=== PATIENT | female | born 1955 | race Caucasian/White ===

== ENCOUNTER → 2016-12-05 | Outpatient (CLI) | payer BC ==
--- NOTE | 2016-12-05 08:50 | REPMRS ---
Patient History The patient states she had a clinical breast exam in Patient is postmenopausal. Family history of breast cancer in sister at age 53. Digital Woman Screen Mammo: December 05, 2016 - Exam #: [id number] Bilateral CC and MLO view(s) were taken. Technologist: Lisa Serrano, Technologist Prior study comparison: August 24, 2015, digital woman screen mammo performed at [facility]. May 12, 2014, digital woman screen mammo performed at [facility]. May 09, 2013, digital woman screen mammo performed at [facility]. FINDINGS: The breast tissue is almost entirely fat. There has been no change in the appearance of the mammogram from the prior studies. There is no interval development of dominant mass, architectural distortion, or clustered microcalcification typical of malignancy. ASSESSMENT: BI-RADS/ACR category 1 mammogram. Negative. Recommendation Routine screening mammogram of both breasts in 1 year (for women over age 40). This mammogram was interpreted with the aid of an FDA-approved computer-aided dectection system. Electronically Signed By: Jonny Hagan MD 12/05/16 7890
== END ==
LOC: M WHC 08:02
PROVIDERS: ATTEND Family Medicine
DX: Z12.31 Encounter for screening mammogram for malignant neoplasm of breast (principal)

== ENCOUNTER → 2018-03-19 | Outpatient (CLI) | payer BC | LOC: M WHC 11:25 | DX: Z12.31 Encounter for screening mammogram for malignant neoplasm of breast (principal); Z80.3 Family history of malignant neoplasm of breast | CPT/HCPCS: 77067 ==

== ENCOUNTER → 2019-05-20 | Outpatient (CLI) | payer BC ==
--- NOTE | 2019-05-20 11:40 | REPMRS ---
Patient History The patient states she had a clinical breast exam in 2018. Family history of breast cancer at age 53 in sister. No Hormone Replacement Therapy Digital Woman Screen Mammo: May 20, 2019 - Exam #: [id number] Bilateral CC and MLO view(s) were taken. Technologist: Tangela Cooley, Technologist Prior study comparison: March 19, 2018, bilateral digital woman screen mammo performed at [facility]. December 05, 2016, digital woman screen mammo performed at [facility]. August 24, 2015, digital woman screen mammo performed at [facility]. FINDINGS: The breast tissue is almost entirely fat. There has been no change in the appearance of the mammogram from the prior studies. There is no interval development of dominant mass, architectural distortion, or grouped microcalcification typical of malignancy. 3-D tomosynthesis shows no additional findings. Assessment: BI-RADS/ACR category 1 mammogram. Negative Mammogram. Recommendation Routine screening mammogram of both breasts in 1 year (for women over age 40). This patient's Lifetime Breast Cancer RIsk is estimated at 11.7 %. This mammogram was interpreted with the aid of an FDA-approved computer-aided dectection system. Electronically Signed By: Jonny Hagan MD 05/20/19 3416
== END ==
LOC: M WHC 09:20
PROVIDERS: ATTEND Family Medicine
DX: Z12.31 Encounter for screening mammogram for malignant neoplasm of breast (principal); Z80.3 Family history of malignant neoplasm of breast

== ENCOUNTER → 2020-04-01 | Outpatient (CLI) | payer BC ==
[~2020-04-01] MED LIST: CALC600C3 PO; ECOT81TA5 PO; FARX1TAB3 PO; INSUHUMDS SC; JARD1TAB3 PO; LANTINJ4 SC; METF-877 PO; MULTCAP PO; NEUR100C PO; SIMV10TA21 PO
== END ==
LOC: M LABSMTC 09:57
PROVIDERS: ATTEND Anesthesiology
DX: Z01.812 Encounter for preprocedural laboratory examination (principal); Z20.828 Contact with and (suspected) exposure to other viral communicable diseases

== ENCOUNTER 2020-04-06 06:06 | Inpatient (IN) | payer BC ==
--- NOTE | 2020-04-02 12:19 | HPE ---
DATE OF ANTICIPATED ADMISSION: 04/06/2020 ATTENDING: Dr. Philip Bacon CHIEF COMPLAINT: Neck pain, pain radiating to the upper extremities, and underlying cervical spinal stenosis. HISTORY: This is a 64-year-old female patient with neck pain and pain that radiates into both upper extremities, into the hands and into the thumb. She continues to have trouble with balance as well. She has failed to improve with conservative management. She had had studies consistent with spinal stenosis at 5-6 and 6-7. She has been seen and evaluated by Dr. Bacon, and she has been consented by Dr. Bacon for anterior cervical decompression and fusion, C5-6, C6- 7. Medical optimization pending. ALLERGIES: SULFA DRUGS and CODEINE. CURRENT MEDICATIONS: - Latus 35 mg daily - metformin 1000 mg twice a day - Jardiance 25 mg one tablet once per day - simvastatin 10 mg one tablet at bedtime - gabapentin 300 mg twice a day - aspirin 81 mg once per day. She will discontinue that 5 days prior to surgery. - multivitamin - calcium with vitamin D MEDICAL HISTORY: 1. Insulin-dependent diabetes. 2. Elevated cholesterol. 3. Cervical spinal stenosis. 4. Upper extremity radiculopathy. SURGICAL HISTORY: Remarkable for: 1. Prior carpal tunnel release. 2. Tubal ligation. FAMILY HISTORY: Diabetes, heart disease, and hypertension as well as cancer. SOCIAL HISTORY: She does not smoke. She does not use alcohol. REVIEW OF SYSTEMS: Denies fever or chills. Denies chest pain, shortness of breath, or cough. Denies exposure to COVID-19. Denies nausea or vomiting. Notes persistent neck pain, pain radiating to both upper extremities as well as into both hands. PHYSICAL EXAMINATION: Today reveals a well-nourished, well-developed female patient. She ambulates without assistive devices today. Her gait is not wide based. Spurling's is positive with increased symptoms to both upper extremities. Deep tendon reflexes are 2 at the biceps, 2 at the triceps, 2 at the brachioradialis, 2 at the knees. Clonus was negative today. Joann's is negative today. Neck is supple without adenopathy or jugular venous distention (JVD). Lungs are Clear to auscultation without rales or wheeze. Heart: Regular rate and rhythm. Abdomen: Bowel sounds are present. LABORATORY DATA: Pending. Medical optimization pending. CURRENT VITAL SIGNS: Blood pressure 126/82, pulse 76, respirations 18, temperature 97.5, height 61 inches, weight 198 pounds, body mass index (BMI) of 36.2. IMPRESSION: Symptomatic cervical spinal stenosis and upper extremity radiculopathy. PLAN: She has been consented by Dr. Bacon for an anterior cervical decompression and fusion at C5-6 and C6-7. She was given instructions to include, but not limited to, the review of her pre and postoperative instructions, the wearing of the collar, to bring her collar with her to the surgery. We discussed stopping her aspirin 5 days prior to surgery. No use of nonsteroidal anti-inflammatory drugs (NSAIDs) 5 days prior to surgery. Went over nothing by mouth, what nothing by mouth means, after midnight. She will followup with her primary for medical optimization and to have her laboratory data done. She understands to self- quarantine after her COVID testing. All of her questions are answered. She understands she needs to be on time for her scheduled time. She understands the visitation rules that are currently in place at the hospital. JOHN
[~2020-04-06] VITALS: Ht 157.5 cm; Wt 89.7 kg
[2020-04-06] VITALS (8 sets, daily range): BP systolic 129–152; BP diastolic 73–93
[2020-04-06] MEDS ORDERED: PERCOCET 5MG/325MG TAB PO ONE ×2 (06:30→07:20)
[2020-04-06] MEDS ORDERED: GABAPENTIN 400 MG CAP PO ONE (06:30)
[2020-04-06] MEDS ORDERED: LR 1,000 ML IV ONE (06:30)
[2020-04-06] MEDS ORDERED: ceFAZolin SOD 2 GM in IV 1 EA IV ONE ×2 (06:30→14:00)
[2020-04-06] MEDS ORDERED: methylPREDNISolone 500 MG VIAL (J2930) As Ordered ONE (07:14)
[2020-04-06] MEDS ORDERED: LIDOCAINE W/EPINEPHRINE 1% 20ML VIAL As Ordered ONE (07:14)
[2020-04-06] MEDS ORDERED: THROMBIN SOLN 20,000 UNITS KIT As Ordered ONE (07:14)
[2020-04-06] MEDS ORDERED: BACITRACIN PWD 50,000 UNITS VIAL As Ordered ONE (07:15)
[2020-04-06] MEDS ORDERED: PERCOCET 5MG/325MG TAB PO PRN (07:35)
[2020-04-06] MEDS ORDERED: propofoL 200 MG/20 ML VIAL As Ordered ONE ×2 (09:06→09:56)
[2020-04-06] MEDS ORDERED: ONDANSETRON 4MG/2ML VIAL As Ordered ONE (09:06)
[2020-04-06] MEDS ORDERED: dexameTHASONE 4 MG/ML 1ML VIAL (J1100 PER 1MG) As Ordered ONE (09:06)
[2020-04-06] MEDS ORDERED: ROCURONIUM BROMIDE 50 MG/5 ML VIAL As Ordered ONE (09:06)
[2020-04-06] MEDS ORDERED: fentaNYL 100 MCG/2 ML INJECTION (J3010) As Ordered ONE ×2 (09:06→10:10)
[2020-04-06] MEDS ORDERED: LIDOCAINE 2% 100MG/5ML SDV (FOR ANES.) As Ordered ONE (09:06)
[2020-04-06] MEDS ORDERED: MIDAZOLAM INJ 2MG/2ML VIAL (J2250 PER 1MG) As Ordered ONE (09:06)
[2020-04-06] MEDS ORDERED: ePHEDrine SULFATE 25 MG/5 ML(5MG/ML) SYRINGE As Ordered ONE (09:06)
[2020-04-06] MEDS ORDERED: SUGAMMADEX SODIUM 500 MG/5 ML VIAL (BRIDION) As Ordered ONE (09:56)
[2020-04-06] MEDS ORDERED: KETOROLAC 60MG 2ML VIAL As Ordered ONE (09:56)
[2020-04-06] MEDS ORDERED: ACETAMINOPHEN 1000MG 100ML IV BTL (OFIRMEV) (J0131 PER 10MG) As Ordered ONE ×2 (09:56→13:22)
--- NOTE | 2020-04-06 11:02 | REP ---
INDICATION: RIGHT, C5/C6, C6/C7 ANTERIOR CERVICAL DISCECTOMY AND FUSION. COMPARISON: MRI 01/06/2020. TECHNIQUE: Two intraoperative portable lateral cervical spine images are obtained. FINDINGS: The 1st image shows a metallic probe anteriorly with the tip at the C5-6 disc space. The disc space demonstrates mild to moderate narrowing.The cervical vertebral bodies are well aligned. Second image shows placement of an anterior metallic plate with screws at C5, C6 and C7. Disc spacer is noted at C5-6. The C6-7 disc space is not well visualized.. C7 is not well visualized. IMPRESSION: Anterior cervical discectomy and fusion at C5 through C7. <Electronically signed by Edison Gonzalez > 04/06/20 [id number]
[2020-04-06] MEDS ORDERED: NORCO, ANEXSIA 5/325MG TABLET (HYDROcodone/ACETAMINOPHEN) PO PRN ×2 (11:30)
[2020-04-06] MEDS ORDERED: ONDANSETRON 4MG/2ML VIAL IV PRN (11:30)
[2020-04-06] MEDS ORDERED: HYDROMORPHONE HCL 0.5 MG/ 0.5 ML SYRINGE (J1170 PER 1) IV PRN ×3 (11:30)
[2020-04-06] MEDS ORDERED: fentaNYL 100 MCG/2 ML INJECTION (J3010) IV PRN (11:30)
[2020-04-06] MEDS ORDERED: oxyCODONE 5MG TAB PO PRN (11:30)
[2020-04-06] MEDS ORDERED: METOCLOPRAMIDE INJ 10MG/2ML VIAL (J2765 PER 1) IV PRN (11:30)
[2020-04-06] MEDS ORDERED: LR 1,000 ML IV SCH ×2 (11:30)
[2020-04-06] MEDS ORDERED: ACETAMINOPHEN TAB 650MG DOSE (2X325MG) PO PRN (11:30)
[2020-04-06] MEDS: HumaLOG INSULIN (NovoLOG) PER UNIT SC SCH ×2 (12:30→17:31)
--- NOTE | 2020-04-06 12:38 | CR.PDOC ---
General Date of Consultation: Apr 06, 2020 Consultation REASON FOR CONSULTATION/CHIEF COMPLAINT: Consulted by orthopedics for medical co-management. HISTORY OF PRESENT ILLNESS: 64F with PMHx of IDDM, DLP and cervical spinal stenosis with upper extremity radiculopathy failing conservative treatment. Admitted for cervical spinal fusion surgery between C5-C7. Today she is POD #0. She has no acute medical complaints. She denies chest pain, SOB, N/V/D, abdominal pain. ALLERGIES: Please see below. HOME MEDICATIONS: Please see below. PAST MEDICAL HISTORY: #IDDM #DLP #cervical spinal stenosis with upper extremity radiculopathy REVIEW OF SYSTEMS: Negative except as per HPI. PHYSICAL EXAMINATION: VITAL SIGNS: Please see below. GENERAL APPEARANCE: NAD HEENT: NC/AT, EOMI, nasal cannula in place, edentulous Lungs: CTA B/L Heart: +S1S2, RRR Abd: soft, NT, +BS, obese Ext: no edema LABORATORY DATA: Please see below. ASSESSMENT/PLAN: 64F POD #0 for cervical spinal fusion for upper extremity failing conservative therapy with PMHx IDDM, DLP, cervical spinal stenosis. #IDDM - carb consistent diet - ISS #DLP - continue statin therapy #cervical spinal stenosis - POD #0 - follow as per ortho Vital Signs/I&O Vital Signs Date Time Temp Pulse Resp B/P (MAP) Pulse Ox O2 Delivery O2 Flow Rate FiO2 04/06/20 11:55 98.1 66 18 132/80 (97) 93 Nasal Cannula 1.0 Laboratory Data Labs 24H Laboratory Tests 2 04/06/20 07:10: Bedside Glucose (Misc Panel) 115 04/06/20 10:46: Bedside Glucose (Misc Panel) 149H 04/06/20 11:45: Bedside Glucose (Misc Panel) 150H CBC/BMP Laboratory Tests 04/06/20 06:35 Allergies Coded Allergies: Sulfa (Sulfonamide Antibiotics) (Verified Allergy, Unknown, RASH, 04/06/20) codeine (Verified Allergy, Unknown, RASH, 04/06/20) Home Medications Scheduled Aspirin (Ecotrin) 81 Mg Tablet.dr, 81 MG PO DAILY, (Reported) Calcium Carbonate/Vitamin D3 (Calcium 600+D Softgel) 1 Each Capsule, 1 CAP PO BID, (Reported) Empagliflozin (Jardiance) 25 Mg Tablet, 25 MG PO DAILY, (Reported) Gabapentin (Neurontin) 100 Mg Capsule, 300 MG PO BID, (Reported) Insulin Glargine,Hum.rec.anlog (Lantus Solostar) 100 Unit/1 Ml Insuln.pen, 34 UNITS SC DAILY, (Reported) Metformin HCl (Metformin HCl) 1,000 Mg Tablet, 1,000 MG PO BID, (Reported) Multivitamin (Multivitamins) 1 Each Capsule, 1 CAP PO DAILY, (Reported) Simvastatin (Simvastatin) 10 Mg Tablet, 10 MG PO DAILY, (Reported) MANOLO MARCANO MD Apr 06, 2020 12:38
[2020-04-06] MEDS: metFORMIN (GLUCOPHAGE) 1000 MG TABLET PO SCH (17:30)
[2020-04-06] MEDS ORDERED: HumaLOG INSULIN (NovoLOG) PER UNIT SC SCH (21:00)
[2020-04-06] MEDS: GABAPENTIN 300 MG CAP PO SCH (22:03)
[2020-04-07 02:00] VITALS: BP 129/74
[2020-04-07 06:00] VITALS: BP 130/74
[2020-04-07 06:36] LABS: HEMATOCRIT 42.7 % (36.0-47.0); HEMOGLOBIN 13.8 g/dl (12.0-15.5); MEAN CORPUSCULAR HEMOGLOBIN 30.5 pg (27.0-33.0); MEAN CORPUSCULAR HGB CONC 32.3 g/dl (32.0-36.5); MEAN CORPUSCULAR VOLUME 94.3 fl (80.0-96.0); PLATELET COUNT, AUTOMATED 245 10^3/uL (150-450); RED BLOOD COUNT 4.53 10^6/uL (4.00-5.40); WHITE BLOOD COUNT 13.2 10^3/uL (4.0-10.0)
[2020-04-07] MEDS ORDERED: HYDR-3713 PO (06:42)
[2020-04-07 07:13] LABS: ALBUMIN 3.4 GM/DL (3.2-5.2); ALT/SGPT 26 U/L (12-78); BILIRUBIN,TOTAL 0.5 MG/DL (0.2-1.0); BLOOD UREA NITROGEN 26 MG/DL (7-18); CALCIUM LEVEL 9.2 MG/DL (8.8-10.2); CARBON DIOXIDE LEVEL 27 MEQ/L (21-32); CHLORIDE LEVEL 104 MEQ/L (98-107); CREATININE FOR GFR 0.82 MG/DL (0.55-1.30); GLOMERULAR FILTRATION RATE > 60.0 (>45); GLUCOSE, FASTING 130 MG/DL (70-100); POTASSIUM SERUM 4.5 MEQ/L (3.5-5.1); SODIUM LEVEL 139 MEQ/L (136-145); TOTAL PROTEIN 6.7 GM/DL (6.4-8.2)
[2020-04-07] MEDS: HumaLOG INSULIN (NovoLOG) PER UNIT SC SCH (08:17)
[2020-04-07] MEDS: GABAPENTIN 300 MG CAP PO SCH (08:18)
[2020-04-07] MEDS: metFORMIN (GLUCOPHAGE) 1000 MG TABLET PO SCH (08:18)
[2020-04-07] MEDS ORDERED: FLUBLOK(EGG FREE)(QUAD)INFLUENZA VACC 0.5ML SYRINGE 18YRS & OLDER IM ONE (09:00)
[2020-04-07] MEDS ORDERED: SIMVASTATIN 10 MG TAB PO SCH (09:00)
--- NOTE | 2020-04-07 10:40 | IPNPDOC ---
Text Note Date of Service The patient was seen on 04/07/20. NOTE Subjective: Patient seen and examined at bedside. No acute overnight events reported. Patient has no new medical complaints this morning. Objective: VITAL SIGNS: Please see below. GENERAL APPEARANCE: NAD HEENT: NC/AT, EOMI, nasal cannula in place, edentulous Lungs: CTA B/L Heart: +S1S2, RRR Abd: soft, NT, +BS, obese Ext: no edema ASSESSMENT/PLAN: 64F POD #1 for cervical spinal fusion for upper extremity failing conservative therapy with PMHx IDDM, DLP, cervical spinal stenosis. #IDDM - carb consistent diet - ISS #DLP - continue statin therapy #cervical spinal stenosis - POD #1 - follow as per ortho #DVT prophylaxis - as per ortho VS,Fishbone, I+O VS, Fishbone, I+O Laboratory Tests 04/07/20 06:11 Vital Signs Date Time Temp Pulse Resp B/P (MAP) Pulse Ox O2 Delivery O2 Flow Rate FiO2 04/07/20 06:00 97.8 71 18 130/74 (92) 95 Room Air 04/06/20 13:30 1.0 I&O- Last 24 Hours up to 6 AM 04/07/20 05:59 Intake Total 1870 ml Output Total 1075 ml Balance 795 ml MANOLO MARCANO MD Apr 07, 2020 10:40
--- NOTE | 2020-04-08 10:25 | RO ---
DATE OF OPERATION: 04/06/2020 PREOPERATIVE DIAGNOSIS: Cervical spinal stenosis, right upper extremity cervical radiculopathy. POSTOPERATIVE DIAGNOSIS: Cervical spinal stenosis, right upper extremity cervical radiculopathy; involved levels are C5-6, C6-7. PROCEDURE PERFORMED: Anterior cervical discectomy and fusion procedure, C5-6 including end plate preparation, decompression of the spinal cord and nerve root, ACDF, C6-7, additional level, application of anterior cervical instrumentation, C5, 6, 7, use and implantation of structural allograft for spine surgery at C5-6 and C6-7. SURGEON: Philip Bacon M.D. DRYWALL WORKER: Khari Lazaro PA-C ANESTHESIA: General ESTIMATED BLOOD LOSS: Less than 30. COMPLICATIONS: None. INDICATIONS: Paresthesias, pain radiating to the right more than left upper extremity, MRI evidence of cervical spinal stenosis. The patient has elected for operative intervention. Consent reviewed in detail including the bev discussion of the pathology involved, the procedure proposed, alternatives such as doing nothing, risks including but not limited to pain, failure, infection, bleeding, blood loss, incomplete relief of symptoms, need for additional surgery and other issues. The patient agrees to proceed with surgery. COMPONENTS USED: DePuy [place] 30 mm plate, 14 mm screws x6, 5x7 VG2 structural allograft OPERATIVE COURSE: She was identified in the holding area; site and side verified, brought to the operating room. Once anesthesia was administered, she was positioned in the usual fashion for exposure of the cervical spine for anterior cervical decompression and fusion. Head halter traction, 7 lb was utilized. Next, once she was draped, a timeout was accomplished. The incision was a right-sided anterior cervical incision three fingerbreadths long infiltrated with 1% lidocaine with epinephrine made with a 10-blade knife, developed down through skin and subcuticular tissues to the platysma. Mr. Lazaro was standing on the patients left, I on the patients right. I utilized 3.5 loupe magnification. The platysma was elevated and divided perpendicular to its fibers. The sternocleidomastoid was identified. Dissection continued medial to the sternocleidomastoid. The carotid sheath was identified, protected and dissection continued medial to the carotid sheath down through the prevertebral fascia. Mr. Lazaro utilized retractors to assist in further dissection. We elevated the prevertebral fascia at its right lateral border over the longus colli muscle and swept it to the left. Mr. Lazaro retracted that in the midline structure using S retractors and this exposed the C5-6 annulus. I placed the bayonet spinal needle in the C5-6 annulus and we obtained a cross table lateral x-ray to verify our level. Once this was accomplished, distraction pins were placed across C5-6 followed by the Shadow Line retractor. The annulus was opened using an 11-blade. The annular material was removed using pituitaries, cartilaginous end plates with curettes. Oval bur was then utilized to contour the end plates, debride the uncinate processes and exposed down to the posterior longitudinal ligament. The posterior longitudinal ligament was elevated using #4 Amanda curette, removed using #2 Kerrisons, exposing the thecal sac and spinal cord. Next, uncinate process hypertrophy was debrided. Foraminotomies were accomplished. Irrigation was accomplished. Rasps through a size 5 x 7 were utilized. Sounds through a size 5 x 7 were utilized. I elected a 5 x 7 graft, irrigated, implanted a 5 x 7 graft, tamped into place. Next, superior distraction pin removed, hole plugged with wax. Superior/C5 anterior osteophyte debrided using oval bur. I now subluxed retractors to the C6-7 level. We placed distraction pin at C7 and distracted across C6-7. C6-7 was approached in the same fashion including annulotomy, removal of disc material and preparation of end plates, debridement of uncinate processes, foraminotomies, takedown of the PLL, rasps again with a 5 x 7, sounds with 5 x 7, implant 5 x 7 VG2 structural allograft. Next, distraction pins were both removed, sites plugged with wax. Oval bur utilized to further contour the anterior vertebral column. A size 32 mm plate was selected, applied, drilled and then we placed the appropriate screws and engaged the locking device at all levels. Irrigation was again accomplished. A cross table lateral x-ray was taken to verify appropriate plate and screw placement. We inspected soft tissues as we removed retractors and irrigated again. We reapproximated the platysma with interrupted stitch, deep dermis with interrupted stitch, Dermabond utilized on the skin, [place] collar applied. The patient extubated, moved to recovery room in good condition. Mr. Grewaluyen was present and participated in the entirety of rhe case in the capacity of first dyer. For further details, please refer to the medical record. JOHN
== END 2020-04-07 09:30 | disposition home or self-care (01) | DRG 310 ==
LOC: M OR 06:06 → M MS5PR 11:25
PROVIDERS: ADMIT Orthopaedic Surgery; ATTEND Orthopaedic Surgery
PROC: 0RB30ZZ Excision of Cervical Vertebral Disc, Open Approach (ICD-10-PCS; 2020-04-06)
PROC: 01N10ZZ Release Cervical Nerve, Open Approach (ICD-10-PCS; 2020-04-06)
PROC: 0RB10ZZ Excision of Cervical Vertebral Joint, Open Approach (ICD-10-PCS; principal; 2020-04-06 07:30)
DX: M48.02 Spinal stenosis, cervical region (principal); E11.9 Type 2 diabetes mellitus without complications; Z79.899 Other long term (current) drug therapy; E78.00 Pure hypercholesterolemia, unspecified; Z79.82 Long term (current) use of aspirin; Z88.2 Allergy status to sulfonamides; Z88.5 Allergy status to narcotic agent; Z79.4 Long term (current) use of insulin

== ENCOUNTER → 2020-08-14 | Outpatient (CLI) | payer BC ==
[~2020-08-14] MED LIST changes: +HYDR-3713 PO
--- NOTE | 2020-08-14 14:12 | REPMRS ---
Patient History The patient states she had a clinical breast exam in October 2019. Family history of breast cancer at age 53 in sister. No Hormone Replacement Therapy Digital Woman Screen Mammo: August 14, 2020 - Exam #: [id number] Bilateral CC and MLO view(s) were taken. Technologist: Pauline Cota, Technologist Prior study comparison: May 20, 2019, bilateral digital woman screen mammo performed at [facility]. March 19, 2018, bilateral digital woman screen mammo performed at [facility]. December 05, 2016, digital woman screen mammo performed at [facility]. FINDINGS: The breast tissue is almost entirely fat. The Volpara volumetric breast density category is: A. There has been no change in the appearance of the mammogram from the prior studies. There is no interval development of dominant mass, architectural distortion, or grouped microcalcification typical of malignancy. 3-D tomosynthesis shows no additional findings. Assessment: BI-RADS/ACR category 1 mammogram. Negative Mammogram. Recommendation Routine screening mammogram of both breasts in 1 year (for women over age 40). This patient's [facility] Lifetime Breast Cancer RIsk is estimated at 11.4 %. This mammogram was interpreted with the aid of an FDA-approved computer-aided dectection system. Electronically Signed By: Jonny Hagan MD 08/14/20 [id number]
== END ==
LOC: M WHC 11:54
PROVIDERS: ATTEND Family Medicine
DX: Z12.31 Encounter for screening mammogram for malignant neoplasm of breast (principal)

== ENCOUNTER → 2021-10-14 | Outpatient (CLI) | payer BC | LOC: M WHC 08:51 | PROVIDERS: ATTEND Family Medicine | DX: Z12.31 Encounter for screening mammogram for malignant neoplasm of breast (principal) ==

== ENCOUNTER → 2021-10-14 | Outpatient (CLI) | payer BC ==
[2021-10-14 10:48] LABS: HEMATOCRIT 45.1 % (36.0-47.0); HEMOGLOBIN 15.1 g/dl (12.0-15.5); MEAN CORPUSCULAR HEMOGLOBIN 32.5 pg (27.0-33.0); MEAN CORPUSCULAR HGB CONC 33.5 g/dl (32.0-36.5); PLATELET COUNT, AUTOMATED 229 10^3/uL (150-450); RED BLOOD COUNT 4.65 10^6/uL (4.00-5.40); WHITE BLOOD COUNT 8.6 10^3/uL (4.0-10.0)
[2021-10-14 11:07] LABS: INR 0.9; PROTHROMBIN TIME 12.6 SECONDS (12.7-14.5)
[2021-10-14 11:12] LABS: ALBUMIN 3.9 GM/DL (3.2-5.2); ALT/SGPT 29 U/L (12-78); BILIRUBIN,TOTAL 0.6 MG/DL (0.2-1.0); BLOOD UREA NITROGEN 22 MG/DL (7-18); CALCIUM LEVEL 9.4 MG/DL (8.8-10.2); CARBON DIOXIDE LEVEL 31 MEQ/L (21-32); CHLORIDE LEVEL 107 MEQ/L (98-107); GLOMERULAR FILTRATION RATE > 60.0 (>45); GLUCOSE, FASTING 125 MG/DL (70-100); POTASSIUM SERUM 4.3 MEQ/L (3.5-5.1); SODIUM LEVEL 140 MEQ/L (136-145); TOTAL PROTEIN 7.4 GM/DL (6.4-8.2)
[2021-10-14 11:18] LABS: ERYTHROCYTE SEDIMENTATION RATE 13 mm/hr (0-30)
== END ==
LOC: M RAD 10:04
PROVIDERS: ATTEND Orthopaedic Surgery
DX: M17.12 Unilateral primary osteoarthritis, left knee (principal)

== ENCOUNTER → 2022-11-08 | Outpatient (CLI) | payer BC, OTHER | LOC: M WHC 12:53 | PROVIDERS: ATTEND Family Medicine | DX: Z12.31 Encounter for screening mammogram for malignant neoplasm of breast (principal); Z80.3 Family history of malignant neoplasm of breast ==

== ENCOUNTER → 2023-11-28 | Outpatient (CLI) | payer OTHER | LOC: M WHC 09:50 | PROVIDERS: ATTEND Physician Assistant | DX: M71.21 Synovial cyst of popliteal space [Baker], right knee (principal); M25.561 Pain in right knee; R22.41 Localized swelling, mass and lump, right lower limb; I80.00 Phlebitis and thrombophlebitis of superficial vessels of unspecified lower extremity ==

== ENCOUNTER → 2024-03-05 | Outpatient (CLI) | payer MEDICARE | LOC: M WHC 10:28 | PROVIDERS: ATTEND Family Medicine | DX: Z12.31 Encounter for screening mammogram for malignant neoplasm of breast (principal); M85.852 Other specified disorders of bone density and structure, left thigh; R92.313 Mammographic fatty tissue density, bilateral breasts ==

== ENCOUNTER → 2025-04-22 | Outpatient (CLI) | payer MEDICARE | LOC: M WHC 09:01 | PROVIDERS: ATTEND Family Medicine | DX: Z12.31 Encounter for screening mammogram for malignant neoplasm of breast (principal) ==